=== PATIENT | male | born 1985 | race Caucasian/White ===

== ENCOUNTER 2020-10-26 00:56 | Emergency (ER) | payer MEDICAID, SELFPAY ==
[2020-10-26 00:54] VITALS: BP 146/93; PULSE 99; RESP 17; TEMP 36.6; O2SAT 100
--- NOTE | 2020-10-26 00:59 | ECG_ITS ---
Measurements Intervals [place] Rate: 98 P: 26 WI: 135 QRS: 28 QRSD: 100 T: 32 QT: 346 QTc: 443 Interpretive Statements SINUS RHYTHM BASELINE ARTIFACT- I, II, III, AVR, AVL, AVF, V1-V6 NORMAL ECG Electronically Signed On 10-28-2020 11:30:09 CDT by Keaton Mauro D.O.
--- NOTE | 2020-10-26 01:08 | PC.NURSE ---
pt to ED [facility] EMS. Per EMS, pt's family called d/t pt not acting right . pt denies SI/HI but appears intoxicated on arrival. 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 DENIES overdose. EMS reports hx of anxiety, depression, and bipolar, and pt reports additional hx of adhd. scheduled to see psychiatrist tomorrow.
[2020-10-26 01:57] VITALS: BP 138/82; PULSE 93; RESP 23; O2SAT 99
[2020-10-26 03:00] VITALS: BP 126/87; PULSE 93; RESP 20; O2SAT 98
--- NOTE | 2020-10-26 03:39 | PC.NURSE ---
sitting up in bed with visitor at bedside. speech clear. no s/s of distress. observation continues.
--- NOTE | 2020-10-26 03:57 | ED.GENADULT ---
HPI - General Adult General Chief complaint: Overdose Stated complaint: ETOH and xanax Time Seen by Provider: 10/26/20 03:56 Source: patient Mode of arrival: ambulatory Limitations: no limitations History of Present Illness HPI narrative: Patient is a 35-year-old male brought in by EMS after family reported that he was not acting right . Patient admits to taking 4 of his Xanax at 0.5 mg, she states usually takes 2 a day but might have accidentally taken an extra 2. And admits to drinking yesterday but none today.. Patient states that he does not know why he is here because he feels fine and has no complaints. Patient denies any headache, dizziness, chest pain, shortness of breath, abdominal pain, nausea, vomiting, fever or chills. Patient denies any suicidal or homicidal thoughts. Related Data Allergies Allergy/AdvReac Type Severity Reaction Status Date / Time Tea Tree Oil Allergy Unknown Unknown Uncoded 10/05/20 14:35 Review of Systems Review of Systems: All systems reviewed & are unremarkable except as noted in HPI and below Constitutional: Constitutional: Denies body ache(s), Denies chills, Denies excessive sweating, Denies fatigue, Denies fever(s), Denies headache(s), Denies lethargy, Denies malaise, Denies weakness and Denies weight loss Eyes: Eyes: Denies blurry vision, Denies change in vision and Denies loss of vision ENT: Denies dizziness, Denies ear discharge, Denies headache(s), Denies lip swelling, Denies epistaxis, Denies nasal congestion, Denies neck pain, Denies throat swelling and Denies tongue swelling Cardiovascular: Cardiovascular: Denies chest pain, Denies chest pain at rest, Denies chest pain with activity, Denies diaphoresis, Denies rapid heart rate, Denies edema, Denies irregular heart rhythm, Denies lightheadedness, Denies palpitations, Denies dyspnea and Denies dyspnea on exertion Respiratory: Respiratory: Denies chest congestion, Denies cough, Denies hemoptysis, Denies dyspnea and Denies dyspnea on exertion Gastrointestinal: Gastrointestinal: Denies abdominal pain, Denies melena, Denies hematochezia, Denies diarrhea, Denies nausea, Denies vomiting and Denies hematemesis Musculoskeletal: Musculoskeletal: Denies abnormal gait, Denies deformity, Denies joint swelling, Denies limited range of motion, Denies neck pain and Denies numbness Neurologic: Denies Abnormal speech present, Denies abnormal gait, Denies confusion, Denies dizziness, Denies headache(s), Denies focal weakness, Denies loss of vision, Denies numbness, Denies Other visual disturbances, Denies Sensory deficit (Neuro) and Denies weakness Psychiatric: Psychiatric: Denies confusion, Denies depression, Denies auditory hallucinations, Denies homicidal ideation and Denies suicidal ideation Endocrine: Endocrine: Denies cold intolerance, Denies excessive sweating, Denies fatigue, Denies heat intolerance and Denies palpitations Hematologic/Lymphatic: Hematologic/Lymphatic: Denies easy bleeding and Denies easy bruising Allergic/Immunologic: Allergic/Immunologic: Denies lip swelling, Denies throat swelling and Denies tongue swelling PMFSH Past Medical History Medical History Chicken pox Diarrhea Psychiatric care Family History Family History Father No problems noted. Mother No problems noted. Sibling , Suicide 2007 Suicide Sibling No problems noted. Sibling No problems noted. Sibling Outcome of delivery, other multiple , all stillborn Social History Social History Social History: Patient did outpatient Cognitive Behavioral Therapy in 2019. Patient drinks caffeine rarely. Smoking status: Never smoker Alcohol intake: current Substance use: never Substance use type: does not use Gender identity (if verbalized by the pa
[2020-10-26 04:40] VITALS: BP 130/74; PULSE 85; RESP 18; O2SAT 99
--- NOTE | 2020-10-26 14:05 | ECG_ITS ---
Measurements Intervals [place] Rate: 98 P: -30 [place]: 131 QRS: 146 QRSD: 99 T: 156 QT: 334 QTc: 428 Interpretive Statements SINUS OR ECTOPIC ATRIAL RHYTHM POSSIBLE LEFT ATRIAL ENLARGEMENT RIGHT AXIS DEVIATION LOW QRS VOLTAGE IN LIMB LEADS BORDERLINE T WAVE ABNORMALITY- ANT/INF LEADS BASELINE ARTIFACT- I, II, III, AVR, AVL, AVF, V1, V3-V5 BORDERLINE ECG Electronically Signed On 10-26-2020 14:07:28 CDT by Keaton Mauro D.O.
== END 2020-10-26 04:41 | disposition home or self-care (01) ==
PROVIDERS: Emergency Provider Emergency Medicine; PCP Emergency Medicine
DX: Z03.6 Encounter for observation for suspected toxic effect from ingested substance ruled out (principal); T42.4X5A Adverse effect of benzodiazepines, initial encounter
CPT/HCPCS: 93005; 99283